=== PATIENT | female | born 1970 | race Caucasian/White ===

== ENCOUNTER → 2016-10-11 | Day surgery (SDC) | payer BC ==
[2016-09-24 08:57] VITALS: Ht 167.6 cm; Wt 72.7 kg
[~2016-10-11] VITALS: Ht 167.6 cm; Wt 72.7 kg
[~2016-10-11] MED LIST: BCPILLS PO; LEVO50CA2 PO; LEVO50TA6 PO; LORA-741 PO; WLLSR/150 PO
== END | disposition home or self-care (01) ==
LOC: EDSTATUS 08:00 → C.PAT 11:25
PROVIDERS: ATTEND Ophthalmology

== ENCOUNTER → 2017-02-14 | Day surgery (SDC) | payer BC ==
[2017-01-31 14:31] VITALS: Ht 167.6 cm; Wt 70.5 kg
[~2017-02-14] VITALS: Ht 167.6 cm; Wt 70.5 kg
[~2017-02-14] MED LIST changes: +ACETAMINOPHEN 325 MG TAB PO PRN; +ATROPINE SULFATE 0.1 MG/ML 5ML SYR IV PRN; +ATROPINE SULFATE 1% OP SOLN 2 ML BTL ONE; +BSS FLUSH ONE; +EpHEDrine SULFATE INJ 50 MG/ML AMP IV PRN; +HYDROCODONE/ACETAMOPHEN 5/325MG TAB ONE; +HYDROCODONE/ACETAMOPHEN 5/325MG TAB PO ONE; +KETOROLAC TROMETHAMINE 30 MG/ML VIAL ONE; +LACTATED RINGER'S 1000ML 500 ML IV SCH; -LEVO50TA6 PO; +LIDOCAINE 3.5% OPH GEL PER APPLICATION CHARGE OPL SCH; +LIDOCAINE 4% OP SOLN DROP CHARGE ONE; +LIDOCAINE 4% OP SOLN DROP CHARGE OPL SCH; +MIDAZOLAM HCL 1 MG/ML 2ML VIAL ONE; +MOXIFLOXACIN OPH SOLN PER DROP CHARGE ONE; +ONDANSETRON INJ 2 MG/ML 2 ML VIAL IV PRN; +POVIDONE-IODINE OP SOLN 30 ML BTL ONE; +PROPARACAINE 0.5% OP SOLN PER DROP CHARGE OPL SCH
[2017-02-14] MEDS: MOXIFLOXACIN OPH SOLN PER DROP CHARGE OPL SCH ×3 (11:57→12:18)
--- NOTE | 2017-02-14 12:48 | History & Physical Bridge - [place] ---
H&P Re-Evaluation Bridge Note: I have examined the patient, reviewed the History & Physical and in the interval since the performance of the History & Physical I have noted the following changes of clinical significance: No changes noted
[2017-02-14 14:02] VITALS: TEMP 36.5
--- NOTE | 2017-02-14 14:02 | Discharge Instructions-SurgCtr ---
Discharge Instructions Date of Service Feb 14, 2017. 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 Post Anesthesia Instructions: If you have had General Anesthesia or IV Sedation: * Do not drive today. * Resume driving when surgeon permits. * Do not make important decisions or sign legal documents today. * Call surgeon for: 1. Temperature elevations greater than 101 degrees F. 2. Uncontrollable pain. 3. Excessive bleeding. 4. Persistent nausea and vomiting. 5. Medication intolerance (nausea, vomiting or rash). * For nausea and vomiting use only clear liquids such as: tea, soda, bouillon until nausea subsides, then gradually increase diet as tolerated. * If you have any concerns or questions, call your surgeon's office. If physician is unavailable and it is an emergency, call 911 or go to the nearest emergency room. . Instructions / Follow-Up Instructions / Follow-Up ACTIVITY RECOMMENDATIONS: * Light activities * You may walk outside, read, watch television. * Mild irritation and blurred vision are common for the first few days, redness around the white part of the eye is common. MEDICATIONS: Resume previous medications unless instructed otherwise by your surgeon. Eye drops (today and tomorrow): Cipro - one drop in operative eye 4 times a day Prednisolone 1% - one drop in operative eye 4 times a day Vicodin 5/300 one tab by mouth every 6 hours as needed for pain SPECIAL CARE INSTRUCTIONS: * If any problems or concerns, please call Dr. Frye's office at . * Keep plastic shield taped over eye to sleep at night. * Keep plastic shield taped over eye except to administer eye drops. * Keep plastic shield on until office visit the following day. FOLLOW UP VISIT: Follow-up with Dr. Frye in the [place] office as scheduled. If not already scheduled, please call the office at . Diet Recommendations Home Diet: resume previous diet Procedures Procedures Performed: Left Eye Lamellar Keratectomy Pending Studies Studies pending at discharge: no Medical Emergencies . Who to Call and When: Medical Emergencies: If at any time you feel your situation is an emergency, please call 911 immediately. . Non-Emergent Contact Non-Emergency issues call your: [employer] Operator . . "Provider Documentation" section prepared by Reginald Frye. . [place] Drug Monitoring Program Search Results: no issues identified
--- NOTE | 2017-02-14 14:03 | [facility] Post Operative Brief Note ---
Immediate Operative Summary Operative Date Feb 14, 2017. Pre-Operative Diagnosis Raul's Nodular Keratectomy Left Eye Post-Operative Diagnosis Same Procedure(s) Performed Left Eye Lamellar Keratectomy Surgeon Dr. Frye Bottle And Glass Inspector Surgeon(s) None Estimated Blood Loss 0 Findings raul's nodule degeneration left eye Specimens 0 Complication(s) None Disposition Recovery Room / PACU
--- NOTE | 2017-02-14 14:52 | Anesthesia Progress Nt - [facility] ---
Anesthesia Post Op Note Date & Time Feb 14, 2017 at 14:52 Vital Signs Pain Intensity: 9.0 Vital Signs Past 12 Hours Date Time Temp Pulse Resp B/P (MAP) Pulse Ox O2 Delivery O2 Flow Rate FiO2 02/14/17 14:02 36.5 79 14 118/77 (91) 98 Room Air 02/14/17 11:50 36.9 78 16 104/72 (83) 99 Room Air Notes Mental Status: alert / awake / arousable, participated in evaluation Pt Amnestic to Procedure: Yes Nausea / Vomiting: adequately controlled Pain: improving with treatment Airway Patency, RR, SpO2: stable & adequate BP & HR: stable & adequate Hydration State: stable & adequate Anesthetic Complications: no major complications apparent
[2017-02-14 15:29] VITALS: BP 123/78; PULSE 60; O2SAT 100
--- NOTE | 2017-02-14 16:35 | OPERATIVE REPORT ---
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 POSTOPERATIVE DIAGNOSES: Same. PROCEDURE PERFORMED: Salzmann's nodule removal with partial amputation of LASIK flap, left eye. COMPLICATIONS: None. ESTIMATED BLOOD LOSS: None. ANESTHESIA: Local with sedation. DESCRIPTION OF PROCEDURE: After informed consent was obtained in the holding area, the patient was taken to the operating room where cardiac monitoring leads and oxygen by nasal cannula was administered by anesthesia. Gentle IV sedation was given, and the patient's left eye was prepped and draped in the usual sterile fashion. A wire lid speculum was placed in the left eye and the operating microscope swung into position. Using 0.12 forceps and a shinnecock blade, the scarring and Salzmann's nodular degeneration of the patient's left eye was reflected off the cornea over 15-20 minutes with meticulous dissection. Central scarring of the cornea with the Salzmann's nodule was intertwined with her LASIK flap and there was a partial amputation of the LASIK flap involving the Salzmann's nodule area and the central cornea. Once this was done, an attempt to place a bandage contact lens on the eye was made; however, was unsuccessful due to the severe squeezing of the patient. Vigamox was then placed on the eye as well as an extra drop of lidocaine 4% and the patient was wheeled to the post-anesthesia care unit in stable condition. I attest to the content of the Intraoperative Record and any orders documented therein. Any exception s are noted below.
== END | disposition home or self-care (01) ==
LOC: X.SURG 11:25
PROVIDERS: ATTEND Ophthalmology
DX: H18.452 Nodular corneal degeneration, left eye (principal); H17.89 Other corneal scars and opacities; Z88.0 Allergy status to penicillin